=== PATIENT | female | born 1945 | race American Indian/Alaskan Native ===

== ENCOUNTER 2016-05-25 11:33 | Outpatient (CLI) | payer MEDICARE ==
--- NOTE | 2016-05-25 13:40 | Ultrasound Report ---
ULTRASOUND RENAL BILATERAL HISTORY: Chronic kidney disease, stage III. TECHNIQUE: transabdominal ultrasound with color Doppler interrogation. COMPARISON: None at this facility. FINDINGS: The right kidney is not visualized. This could represent surgical removal, agenesis or ectopia. The left kidney measures 11.5 x 5.3 x 5.7cm. Left renal cortex: 1.8cm. The left kidney is within normal limits. There is no evidence of mass or hydronephrosis. The views of the bladder and the region of the ureters appear normal. IMPRESSION: Normal left kidney. The right kidney is not visualized suggesting surgical removal, agenesis or ectopia. Please correlate with the patient's history or consider CT abdomen and pelvis for further evaluation.
== END 2016-05-25 11:34 | disposition home or self-care (01) ==
LOC: US 11:33
PROVIDERS: ATTEND Internal Medicine Nephrology
DX: N18.3 Chronic kidney disease, stage 3 (moderate) (principal)
CPT/HCPCS: 76770

== ENCOUNTER 2016-06-02 16:48 | Outpatient (CLI) | payer MEDICARE ==
[2016-06-02 17:40] LABS: Calcium 8.6 mg/dL (8.4-10.2); Chloride 102.7 mmol/L (98-107); Potassium 4.9 mmol/L (3.6-5.0)
== END 2016-06-02 16:49 | disposition home or self-care (01) ==
LOC: LAB 16:48
PROVIDERS: ATTEND Internal Medicine Nephrology
DX: N18.3 Chronic kidney disease, stage 3 (moderate) (principal)
CPT/HCPCS: 36415; 80048

== ENCOUNTER 2016-06-09 11:09 | Outpatient (CLI) | payer MEDICARE ==
--- NOTE | 2016-06-09 12:41 | Cat Scan Report ---
CT OF THE ABDOMEN AND PELVIS WITHOUT CONTRAST HISTORY: Chronic kidney disease, stage III. Abnormal ultrasound. TECHNIQUE: Helical CT without contrast. Sagittal and coronal reformatted images. FINDINGS: The ultrasound dated 05/25/16 was reviewed. The right kidney is identified on CT. The right kidney is located in a normal position but demonstrates severe atrophy measuring 5 cm in length. No focal right renal lesion is appreciated. The left kidney is normal size and position measuring approximately 10.8 cm in length. The ureters and bladder are unremarkable. The unenhanced CT appearance of the liver, biliary system, pancreas, spleen, adrenal glands and bowel loops are within normal limits. The appendix is normal. Hysterectomy changes are noted. There are diffuse aortic calcifications but no evidence for aneurysm. No adenopathy, ascites or free air. There are advanced degenerative changes throughout the thoracolumbar spine. No fracture or suspicious bony lesion. IMPRESSION: Atrophic right as outlined above. Hysterectomy. Thoracolumbar spondylosis. No acute process or visceral mass appreciated.
== END 2016-06-09 11:10 | disposition home or self-care (01) ==
LOC: CT 11:09
PROVIDERS: ATTEND Internal Medicine Nephrology
DX: N18.3 Chronic kidney disease, stage 3 (moderate) (principal); N26.1 Atrophy of kidney (terminal); I70.0 Atherosclerosis of aorta; M47.895 Other spondylosis, thoracolumbar region; Z90.710 Acquired absence of both cervix and uterus
CPT/HCPCS: 74176